=== PATIENT | female | born 1965 | race Caucasian/White ===

== ENCOUNTER 2017-12-06 22:24 | Inpatient (IN) | payer BC ==
--- NOTE | 2017-12-06 23:15 | RAD ---
PORTABLE CHEST ONE VIEW: 12/06/2017 10:06 p.m. HISTORY: Cough. Dizziness. COMPARISON: 04/04/2014 FINDINGS: The heart size is normal. The lungs are well expanded without focal areas of consolidation, pneumoth oraces, or pleural effusions. Evidence of old granulomatous disease is again seen. IMPRESSION: No radiographic evidence of acute cardiopulmonary process. POS: [facility]
[2017-12-06 23:58] LABS: ALT (SGPT) 32 U/L (8-55); AST (SGOT) 41 U/L (5-34); Albumin 4.1 g/dL (3.5-5.0); Alkaline Phosphatase 128 U/L (40-150); BUN (Urea Nitrogen) 15 mg/dL (9.8-20.1); Bilirubin, Total 4.2 mg/dL (0.2-1.2); Calc. Creatinine Clearance 0 mL/min (70-130); Estimated GFR-MDRD 64; Globulin 2.9 g/dL (2.4-3.5); Glucose 119 mg/dL (70-105)
[2017-12-07 00:04] LABS: #Basophils 0.1 thou/uL (0.0-0.2); #Eosinphils 0.1 thou/uL (0.0-0.7); #Lymphocytes 1.3 thou/uL (1.20-3.40); #Monocytes 0.9 thou/uL (0.11-0.59); #Neutrophils 6.2 thou/uL (1.40-6.50); %Basophils 0.8 % (0.0-1.0); %Eosinophils 1.3 % (0.0-10.0); %Lymphocytes 15.4 % (21.0-51.0); %Monocytes 10.2 % (0.0-10.0); %Neutrophils 72.3 % (42.0-75.0); Hemoglobin 15.6 g/dL (12.0-16.0); Mean Corpuscular HGB CONC 37.4 g/dL (32.0-36.0); Mean Corpuscular Hemoglobin 38.3 pg (27.0-31.0); Mean Platelet Volume 7.2 fL (7.4-10.4); Platelet Count 201 thou/uL (130-400); RBC Distribution Width 12.8 % (11.5-14.5); Red Blood Cell (RBC) Count 4.09 mill/uL (4.20-5.40); White Blood Cell (WBC) Count 8.6 thou/uL (4.8-10.8)
[2017-12-07 00:09] LABS: Carbon Dioxide 35 mmol/L (22-29)
[2017-12-07 00:11] LABS: Sodium 108 mmol/L (136-145)
[2017-12-07 00:17] LABS: Chloride Less than 65 mmol/L (98-107)
[2017-12-07] MEDS ORDERED: Ondansetron HCl/PF 4 MG/2 ML Vial IVP PRN (00:21)
[2017-12-07] MEDS ORDERED: Acetaminophen 325 MG TAB PO PRN (00:21)
[2017-12-07] MEDS ORDERED: CCU Electrolyte Replacement 1 EACH FS ONE (00:31)
[2017-12-07] MEDS ORDERED: Potassium Chloride 40 MEQ in Sodium Chloride 0.9% 250 ML 250 ML IVPB PRN (00:37)
[2017-12-07] MEDS ORDERED: Magnesium Oxide 400 MG TAB PO PRN ×2 (00:37)
[2017-12-07] MEDS ORDERED: Potassium Phosphate 9 MMOL in Sodium Chloride 0.9% 100 ML IVPB PRN (00:37)
[2017-12-07] MEDS ORDERED: Potassium Chloride 20 MEQ TAB PO PRN (00:37)
[2017-12-07] MEDS ORDERED: Potassium Phosphate 12 MMOL in Sodium Chloride 0.9% 250 ML 250 ML IV PRN (00:37)
[2017-12-07] MEDS ORDERED: Potassium Phosphate 15 MMOL in Sodium Chloride 0.9% 250 ML 250 ML IV PRN (00:37)
[2017-12-07] MEDS ORDERED: CCU ELECTROLYTE REPLACEMENT PROTOCOL FS PRN (00:37)
[2017-12-07] MEDS ORDERED: Magnesium 2 GM/NS 0.9% 100 ML 2 GM in Premix Bag 1 BAG IVPB PRN (00:37)
[2017-12-07] MEDS ORDERED: Sodium Chloride 3% 500 ML IVPB SCH (00:45)
[2017-12-07 01:07] LABS: Osmolality, Serum 226 mOsm/kg (280-295)
[2017-12-07 01:21] LABS: Thyroid Stimulating Hormone 1.2264 uIU/mL (0.35-4.94)
[2017-12-07 01:22] VITALS: BMI 33.5
[2017-12-07 02:18] LABS: #Eosinphils 0.1 thou/uL (0.0-0.7); #Lymphocytes 1.2 thou/uL (1.20-3.40); #Monocytes 0.8 thou/uL (0.11-0.59); #Neutrophils 5.6 thou/uL (1.40-6.50); %Basophils 0.6 % (0.0-1.0); %Eosinophils 1.6 % (0.0-10.0); %Lymphocytes 15.2 % (21.0-51.0); %Monocytes 10.1 % (0.0-10.0); %Neutrophils 72.6 % (42.0-75.0); Hemoglobin 14.8 g/dL (12.0-16.0); Mean Corpuscular Hemoglobin 36.7 pg (27.0-31.0); Mean Platelet Volume 6.6 fL (7.4-10.4); Platelet Count 191 thou/uL (130-400); RBC Distribution Width 12.7 % (11.5-14.5); Red Blood Cell (RBC) Count 4.04 mill/uL (4.20-5.40); White Blood Cell (WBC) Count 7.8 thou/uL (4.8-10.8)
[2017-12-07 02:36] LABS: BUN (Urea Nitrogen) 13 mg/dL (9.8-20.1); Calc. Creatinine Clearance 101 mL/min (70-130); Calcium 9.5 mg/dL (7.8-10.44); Carbon Dioxide 37 mmol/L (22-29); Estimated GFR-MDRD 77; Glucose 118 mg/dL (70-105)
[2017-12-07 02:38] LABS: Potassium 2.5 mmol/L (3.5-5.1); Sodium 113 mmol/L (136-145)
[2017-12-07 02:39] LABS: Chloride Less than 65 mmol/L (98-107)
[2017-12-07 03:24] LABS: Osmolality, Urine 118 mOsm/kg (300-900)
[2017-12-07] MEDS: Potassium Chloride 40 MEQ in Premix Bag 1 BAG IVPB PRN ×3 (03:36→14:10)
[2017-12-07 03:39] LABS: Sodium, Urine 27 mmol/L (Not Available)
--- NOTE | 2017-12-07 04:46 | HP ---
CHIEF COMPLAINT: Generalized weakness, dizziness, and numbness and tingling sensation. HISTORY OF PRESENT ILLNESS: This is a 52-year-old female with past medical history of hyperlipidemia , PA in 2016, hypertension, CVA, COPD, DVTs, being admitted for weakness and dizziness. Per the nitesh ent, her generalized weakness, dizziness, and numbness started about a week prior to admission. The patient states that she did not go to the hospital because she does not like going hospitals and also she does not want to miss her work; therefore, the patient states that she went to work every day, f eeling generalized weakness, numbness, and tingling sensation; however, then became progressively wor se and patient states that now she is having even difficulty with ambulation; therefore, the patient was prompted to go to the ED at [place]. Per medical records, patient stated that she had a vom iting sensation and she had also blurry vision and nausea. Patient denies any fever, headaches, ches t pain, shortness of breath, heart palpitations, abdominal pain. REVIEW OF SYSTEMS: Positive for blurry vision, nausea, vomiting, paresthesias, otherwise as document ed in the [facility], all other systems were reviewed and are negative. FAMILY HISTORY: Reviewed and noncontributory. PAST MEDICAL HISTORY: PA in 2016, hyperlipidemia, hypertension, CVA in 2016, COPD, history of DVT. PAST SURGICAL HISTORY: Left oophorectomy, tubal ligation, , tonsillectomy. PSYCHIATRIC HISTORY: History of depression. SOCIAL HISTORY: The patient drinks socially. Patient denies illicit drug use and patient denies tob acco use. ALLERGIES: BACTRIM. CUURENT MEDICATIONS: Patient takes lisinopril, hydrochlorothiazide, Prozac, isosorbide mononitrate. PHYSICAL EXAMINATION: VITAL SIGNS: Blood pressure is 119/84, pulse of 90, respiratory rate of 18, temperature of 98.3, oxy gen saturation of 94 on room air. GENERAL: The patient is alert, oriented x3, not in acute distress. Patient is lying in bed, speakin g in full sentences. HEENT: Normocephalic, atraumatic. Pupils are equal, round, and react to light. Extraocular movemen ts are intact. No scleral icterus. Mucous membranes are dry. NECK: Trachea is midline. No JVD. Full range of motions. Neck is supple. LUNGS: Clear to auscultation bilaterally. No wheezing, no rales, no rhonchus appreciated. CARDIOVASCULAR: Positive S1, S2. Regular rate and rhythm. No murmurs, no gallops, no rubs apprecia lisa. ABDOMEN: Soft, nontender, nondistended. No masses. No pulsatile masses. No peritoneal signs. Pos itive bowel sounds in all quadrants. EXTREMITIES: Full range of motion of the upper extremities are 5/5 in strength. Good radial pulses. Lower extremity: 5/5 lower extremity strength, full range of motion. NEUROLOGIC: Cranial nerves II through XII grossly intact. No neurologic deficits noted. The patien t is alert, oriented x3. SKIN: Warm, dry, and intact. PSYCHIATRIC: The patient has normal affect. Alert and oriented x3. LABORATORY DATA: WBC is 8.3, hemoglobin 15.6, hematocrit 41.8, platelet count is 201,000. Sodium is 108, potassium is 2.0, chloride is less than 65, carbon dioxide of 35. Anion gap cannot be calculat ed. BUN is 15, creatinine 0.92, GFR of 54, glucose is 119. Serum osmolality is 226, calcium is 10.0 . Total bilirubin is 4.2, AST is 41, ALT is 32, alkaline phosphatase 128. TSH is 1.2264. Urine osm olality is 118. Urine spot sodium is pending. ASSESSMENT AND PLAN: This is a 52-year-old female being admitted for; 1. 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 Patient takes hydrochlorothiazide and Prozac, w hich can cause hyponatremia. Prozac can cause syndrome of inappropriate antidiuretic hormone secreti on. At this point, the patient also has underlying hypovolemia. Patient's chloride is less than 65 and we have placed a central line. We have started hypertonic saline. We will follow up BMP every 4 hours; our goal for sodium within 24 hours is between 68. [employer] has been placed for nurse to co ntact Nephrology. When sodium goes above 115, we will replete electrolytes. We will follow up on ur ine spot sodium at this point, serum osmolarity is 226., aurine osmolarity is 118. Nephrology has be en consulted. We will follow up with Nephrology regarding any further recommendations. The patient has been admitted to the ICU. 2. Electrolyte abnormalities. We will replete patient's potassium and we will continue to monitor t he patient's electrolytes. 3. Hyperlipidemia. We will continue patient on current management. 4. Hypertension. We will monitor patient's blood pressure closely and we will give blood pressure m edication as needed. We will start the patient on her home blood pressure medication of lisinopril a nd we will hold hydrochlorothiazide due to hydrochlorothiazide tendency to cause hyponatremia. 5. History of depression. We will hold patient's psych medication at this time while we will manage the patient's hyponatremia. 6. History of cerebrovascular accident, currently stable. We will monitor the patient closely. 7. Deep venous thrombosis and gastrointestinal prophylaxis. We will do Lovenox for deep venous thro mbosis and we will fluid restrict the patient to 1200 mL and no gastrointestinal chemical prophylaxis needed.
[2017-12-07 08:15] LABS: Anion Gap 13 mmol/L (10-20); BUN (Urea Nitrogen) 11 mg/dL (9.8-20.1); Calc. Creatinine Clearance 108 mL/min (70-130); Calcium 9.4 mg/dL (7.8-10.44); Carbon Dioxide 37 mmol/L (22-29); Chloride 76 mmol/L (98-107); Estimated GFR-MDRD 83; Glucose 113 mg/dL (70-105); Sodium 123 mmol/L (136-145)
[2017-12-07 08:21] LABS: Potassium 2.7 mmol/L (3.5-5.1)
--- NOTE | 2017-12-07 08:32 | RAD ---
PORTABLE AP CHEST: Date: 12/06/17 HISTORY: Post central line placement. COMPARISON: 12/06/17 at 1006 hours. FINDINGS: There has been interval placement of a right internal jugular vein central venous catheter. Tip of th e catheter overlies the expected location of the right atrium. No pneumothorax or pleural effusion is seen. Cardiac silhouette and pulmonary vasculature are within normal limits. Calcified granulomata a re again seen at the lateral aspect of the left upper lung zone. Lungs are otherwise clear. No other interval change. IMPRESSION: 1. Interval placement of right internal jugular central venous catheter with tip overlying the regio n of the right atrium. No pneumothorax is seen. 2. Remainder of the chest is stable. POS: [facility]
[2017-12-07] MEDS: Enoxaparin Sodium 40 MG/0.4 ML SYRINGE SC SCH (08:39)
--- NOTE | 2017-12-07 08:40 | PDOC.PN ---
- Subjective Encounter Start Date: 12/07/17 Encounter Start Time: 08:39 Ms. Nair was seen today in follow-up of severe hyponatremia. She is sleepy but will awaken. She is oriented to person place and time. She says she is tired , but otherwise no complaints. - Objective Resuscitation Status: Resuscitation Status FULL:Full Resuscitation MAR Reviewed: Yes Vital Signs & Weight: Vital Signs (12 hours) Temp Pulse BP Pulse Ox 12/07/17 08:16 92/61 12/07/17 08:15 81 92/61 12/07/17 04:00 98.7 F 12/07/17 01:34 97 12/07/17 01:00 98.8 F Weight Weight 171 lb 8.314 oz Most Recent Monitor Data Heart Rate from ECG 85 NIBP 92/61 NIBP BP-Mean 70 Respiration from ECG 17 SpO2 93 I&O: 12/06/17 12/07/17 12/08/17 06:59 06:59 06:59 Intake Total 409 Output Total 1050 Balance -641 Result Diagrams: 12/07/17 02:05 12/07/17 07:48 Phys Exam - Physical Examination HEENT: PERRLA, sclera anicteric Respiratory: no wheezing, no rales, no rhonchi, clear to auscultation bilateral Cardiovascular: RRR, no significant murmur, no rub no gallop Gastrointestinal: soft, non-tender, no distention, positive bowel sounds Musculoskeletal: no edema, pulses present Neurological: non-focal, moves all 4 limbs Psychiatric: normal affect, A&O x 3 Skin: cap refill <2 seconds Deviation from normal: + erythemamous ans dry scaling skin in both feet and groin Dx/Plan (1) Hyponatremia Code(s): E87.1 - HYPO-OSMOLALITY AND HYPONATREMIA Status: Acute (2) Hypokalemia Code(s): E87.6 - HYPOKALEMIA Status: Acute (3) Hypertension Code(s): I10 - ESSENTIAL (PRIMARY) HYPERTENSION Status: Chronic (4) Depression Code(s): F32.9 - MAJOR DEPRESSIVE DISORDER, SINGLE EPISODE, UNSPECIFIED Status : Chronic - Plan * Hyponatremia- her serum sodium was 123 this AM. 3% saline infusion has been discontinued. Urine osmolality and serum oslmolality were low. Await further recommendations from Nephrology * Hypokalemia- K= level was 2.9 continue to replace. * Both of above are likely from thiazide diuretic, in setting of decreased intake * HTN- her blood pressure is low- will hold Lisinopril, and Carvediolol, and Imdur for now * Depression- will continue to hold Prosac until her serm sodium is corrected
[2017-12-07] MEDS ORDERED: Amlodipine 10 MG TAB PO SCH (09:00)
[2017-12-07] MEDS ORDERED: Lisinopril 10 MG TAB PO SCH (09:00)
[2017-12-07] MEDS: D5 NS w/ 40 mEq KCl 1,000 ML IV SCH ×3 (10:30→20:39)
[2017-12-07 13:17] LABS: Anion Gap 9 mmol/L (10-20); BUN (Urea Nitrogen) 9 mg/dL (9.8-20.1); Calc. Creatinine Clearance 110 mL/min (70-130); Calcium 9.4 mg/dL (7.8-10.44); Carbon Dioxide 37 mmol/L (22-29); Chloride 81 mmol/L (98-107); Estimated GFR-MDRD 84; Glucose 132 mg/dL (70-105); Potassium 3.1 mmol/L (3.5-5.1); Sodium 124 mmol/L (136-145)
--- NOTE | 2017-12-07 16:44 | PRG ---
PULMONARY CONSULT DATE OF SERVICE: 12/07/2017. Randi Nair is a 52-year-old female. She presented with weakness and dizziness. She reached a point where she can barely walk. She presented to [place] and was subsequently transferred here. She was found to be hyponatremic. PAST MEDICAL HISTORY: 1. Remarkable for coronary artery disease with myocardial infarction in 2016. 2. History of lipid disorder. 3. History of hypertension. 3. History of a cerebrovascular accident. 4. History of DVT in the past. 5. History of an oophorectomy. 6. History of tubal ligation. 7. History of tonsillectomy. 8. History of depression. She drank. She does not use drugs. She does not smoke. She reports SULFA allergy. Prior to admission, she was on an MAVERICK inhibitor, hydrochlorothiazide, Prozac and she says she has been on Prozac for several years and hydrochlorothiazide was only recently started. PHYSICAL EXAMINATION: VITAL SIGNS: Heart rate is 83, blood pressures in the 90/60 range, respiratory rates in the teens. HEENT: Pupils react. Sclerae are anicteric. Extraocular movements appeared to be full. NECK: Supple. LUNGS: Clear. HEART: Regular rhythm, no S3. ABDOMEN: Soft and nontender. EXTREMITIES: No clubbing, cyanosis, or edema. NEURO: She is slow to respond, but apparently more alert than she was when she got here. LABORATORY DATA: White count 7.8, hemoglobin 14.8, platelets 191,000. Sodium 124, potassium 3.1, chloride 81, bicarbonate 37, BUN 9, creatinine 0.72. Urine osmolality is 118. Urine sodium is 27. IMPRESSION: Hypoosmolar hyponatremia. The diuretic most likely is the culprit. The antidepressants may be contributing. I have a sodium from September that was 131. In 2014, her sodium was 137. Perhaps a diuretic aggravated some hyponatremia brought on by the Prozac should be corrected slowly. She gradually improved neurologically. Her cortisol and TSH do not suggest hypothyroidism or adrenal insufficiency. We will follow. We would wonder if she is intravascularly dry given that she is normally hypertensive and now is hypotensive. There are no pending cultures reported. MTDD
[2017-12-07 18:59] LABS: Anion Gap 13 mmol/L (10-20); BUN (Urea Nitrogen) 10 mg/dL (9.8-20.1); Calc. Creatinine Clearance 110 mL/min (70-130); Calcium 9.1 mg/dL (7.8-10.44); Carbon Dioxide 33 mmol/L (22-29); Chloride 84 mmol/L (98-107); Estimated GFR-MDRD 84; Glucose 140 mg/dL (70-105); Potassium 3.7 mmol/L (3.5-5.1); Sodium 126 mmol/L (136-145)
--- NOTE | 2017-12-07 23:54 | CON ---
DATE OF CONSULTATION: 12/07/2017 REQUESTING PHYSICIAN: ER physician. REASON FOR CONSULTATION: Severe hyponatremia, symptomatic. IMPRESSION: 1. Severe hyponatremia. This is likely due to hydrochlorothiazide usage compounded by poor osmolar intake. 2. Severe hypokalemia in the context of poor intake. PLAN: 1. Patient needs ICU level of care with very close monitoring of the sodium as hypertonic saline guillermina l be used to address this hyponatremia. 2. Replete potassium. 3. Permanently discontinue hydrochlorothiazide. HISTORY OF PRESENT ILLNESS: History is that of 52-year-old female patient who presented with general ized weakness, dizziness, numbness and tingling sensation. Patient noted with the above symptoms and has been going on for some time, but patient did not go to the hospital. She claimed that she does not like going to the hospital and does not like to miss her walk. This problem progressively got wo rse to the point that the patient presented to the emergency room in [place] where patient was n oted to be severely hyponatremic with sodium level of 108. As a result of this, decision has been ta tomasz to involve [facility] in the management of this case. PAST MEDICAL HISTORY: Significant for hypertension, dyslipidemia, CVA, COPD, and history of DVT. MEDICATIONS: Reviewed and as documented on [employer]. SOCIAL HISTORY: Denies alcohol, tobacco or illicit drug use. REVIEW OF SYSTEMS: Highly limited given the fact this patient is very lethargic. ALLERGIES: BACTRIM. FAMILY HISTORY: Not significantly related to presenting illness. LABORATORY INVESTIGATION: Significant for patient presented with sodium of 108, potassium of 2.0. PHYSICAL EXAMINATION: GENERAL: The patient was noted to be severely lethargic noted with the following vital signs. VITAL SIGNS: Blood pressure 88/63, heart rate 94, respiratory rate 26, O2 sat 100%. HEENT: Unremarkable with moist oral mucosa. Neck is supple. No conjunctival injection or icterus. CARDIOVASCULAR SYSTEM: First and second heart sounds were heard. RESPIRATORY SYSTEM: Clear to auscultation. DIGESTIVE SYSTEM: Revealed a benign abdomen with positive bowel sounds. EXTREMITIES: No peripheral edema. SKIN: No new gross rash. LYMPHATICS: No peripheral lymphadenopathy. SUMMARY: A 52-year-old female patient who presented here severely lethargic and noted to have severe hyponatremia. Thank you for this consultation. We will follow with you.
[2017-12-08 01:16] LABS: Anion Gap 11 mmol/L (10-20); BUN (Urea Nitrogen) 8 mg/dL (9.8-20.1); Calc. Creatinine Clearance 122 mL/min (70-130); Calcium 8.6 mg/dL (7.8-10.44); Carbon Dioxide 33 mmol/L (22-29); Chloride 88 mmol/L (98-107); Estimated GFR-MDRD Greater than 90; Glucose 104 mg/dL (70-105); Potassium 3.8 mmol/L (3.5-5.1); Sodium 128 mmol/L (136-145)
[2017-12-08] MEDS: D5 NS w/ 40 mEq KCl 1,000 ML IV SCH ×3 (04:43→20:53)
[2017-12-08 07:04] LABS: Anion Gap 11 mmol/L (10-20); BUN (Urea Nitrogen) 7 mg/dL (9.8-20.1); Calc. Creatinine Clearance 122 mL/min (70-130); Calcium 8.4 mg/dL (7.8-10.44); Carbon Dioxide 31 mmol/L (22-29); Chloride 91 mmol/L (98-107); Estimated GFR-MDRD Greater than 90; Glucose 108 mg/dL (70-105); Potassium 3.9 mmol/L (3.5-5.1); Sodium 129 mmol/L (136-145)
[2017-12-08] MEDS: Enoxaparin Sodium 40 MG/0.4 ML SYRINGE SC SCH (08:25)
--- NOTE | 2017-12-08 10:06 | PDOC.PN ---
- Subjective Encounter Start Date: 12/08/17 Encounter Start Time: 10:04 Ms. Nair was seen today in follow-up of Hyponatremia. She has a headache, but it is similar to headaches she has had in the past. - Objective Resuscitation Status: Resuscitation Status FULL:Full Resuscitation MAR Reviewed: Yes Vital Signs & Weight: Vital Signs (12 hours) Temp Pulse Ox 12/08/17 08:00 97.9 F 100 12/08/17 04:00 98.8 F 12/08/17 00:00 98.9 F Weight Admit Weight 171 lb Weight 172 lb 2.896 oz Most Recent Monitor Data Heart Rate from ECG 92 NIBP 93/55 NIBP BP-Mean 75 Respiration from ECG 22 SpO2 100 I&O: 12/07/17 12/08/17 12/09/17 06:59 06:59 06:59 Intake Total 409 3121 240 Output Total 1050 2105 60 Balance -641 1016 180 Result Diagrams: 12/07/17 02:05 12/08/17 06:23 Phys Exam - Physical Examination HEENT: PERRLA Respiratory: no wheezing, no rales, no rhonchi, clear to auscultation bilateral Cardiovascular: RRR, no significant murmur, no rub Gastrointestinal: soft, non-tender, no distention, positive bowel sounds Musculoskeletal: edema present trace non-pitting edema Neurological: non-focal, moves all 4 limbs Psychiatric: normal affect, A&O x 3 Dx/Plan (1) Hyponatremia Code(s): E87.1 - HYPO-OSMOLALITY AND HYPONATREMIA Status: Acute (2) Hypokalemia Code(s): E87.6 - HYPOKALEMIA Status: Resolved (3) Hypertension Code(s): I10 - ESSENTIAL (PRIMARY) HYPERTENSION Status: Chronic (4) Depression Code(s): F32.9 - MAJOR DEPRESSIVE DISORDER, SINGLE EPISODE, UNSPECIFIED Status : Chronic - Plan * Hyponatremia- improved, her serum sodium is 129 this morning, continueNormal saline infusion * HTN- blood pressure is still on the lower side- will continue to hold Isosorbide, and Lisinopril * Will discontinue HCTZ * Depression- will continue to hold Prosac * Agree with transfer out of the ICU.
--- NOTE | 2017-12-08 14:57 | PRG ---
DATE OF SERVICE: 12/08/2017 Ms. Nair has had stable vital signs. She is afebrile, heart rate in the 60s, respiratory rates in the teens. Oximetry is 100% on room air. Blood pressure is between 94/69 and 108/75 this morning. Sodium is up to 129, potassium 3.9, chloride 91, bicarbonate 31, BUN 7, creatinine 0.65. IMPRESSION: Hypoosmolar hyponatremia, probably with coexisting intravascular volume depletion. PLAN: Continue avoidance of Prozac and thiazide diuretic. Continue with supportive care. Intake and output are remarkable for p.o. intake of only 240 mL today, 800 mL yesterday, At some point, she may need a fluid restriction if this was in part SIADH secondary to the Prozac. She is stable to transfer out of the Critical Care Unit. We will sign off. MTDD
--- NOTE | 2017-12-08 20:05 | PRG ---
DATE OF SERVICE: 12/08/2017 SUBJECTIVE: The patient was seen and examined, seems to be doing much better, noted with the followi ng vital signs. PHYSICAL EXAMINATION: VITAL SIGNS: Afebrile with temperature 97.9, pulse 80, respiratory rate of 18, O2 saturation of 97%, blood pressure 97/70. HEENT: Unremarkable. Moist oral mucosa. NECK: Supple. No conjunctival injection. No icterus. CARDIOVASCULAR SYSTEM: First and second heart sounds were heard. RESPIRATORY SYSTEM: Clear to auscultation. DIGESTIVE SYSTEM: Revealed a benign abdomen with positive bowel sounds. EXTREMITIES: No peripheral edema. SKIN: No new gross rash. LYMPHATICS: No peripheral lymphadenopathy. LABORATORY INVESTIGATIONS: Sodium came up to 129, potassium 3.9. IMPRESSION: 1. Hyponatremia in the context of hydrochlorothiazide usage compounded by poor osmolar intake. 2. Hypokalemia, resolved. PLAN: 1. Continue current renal supportive measures. 2. Highly nutritional diet is recommended. 3. Permanently discontinue hydrochlorothiazide. 4. Further management will be dependent on the clinical course.
[2017-12-09] MEDS: D5 NS w/ 40 mEq KCl 1,000 ML IV SCH (06:11)
[2017-12-09] MEDS: Enoxaparin Sodium 40 MG/0.4 ML SYRINGE SC SCH (08:11)
[2017-12-09] MEDS ORDERED: D5 NS w/ 40 mEq KCl 1,000 ML IV SCH (09:31)
[2017-12-09 11:01] LABS: Anion Gap 11 mmol/L (10-20); BUN (Urea Nitrogen) 6 mg/dL (9.8-20.1); Calc. Creatinine Clearance 0 mL/min (70-130); Calcium 8.4 mg/dL (7.8-10.44); Carbon Dioxide 24 mmol/L (22-29); Chloride 102 mmol/L (98-107); Estimated GFR-MDRD Greater than 90; Glucose 105 mg/dL (70-105); Potassium 4.7 mmol/L (3.5-5.1); Sodium 132 mmol/L (136-145)
[2017-12-09 16:51] VITALS: BP 125/92; TEMP 98.1
[2017-12-09] MEDS ORDERED: hydrALAZINE 25 MG TAB PO PRN (17:17)
--- NOTE | 2017-12-09 17:32 | PDOC.PN ---
- Subjective Encounter Start Date: 12/09/17 Encounter Start Time: 17:30 Ms. Nair is feeling much better. She is tolerating solid food, and wants to go home. - Objective Resuscitation Status: Resuscitation Status FULL:Full Resuscitation MAR Reviewed: Yes Vital Signs & Weight: Vital Signs (12 hours) Temp Pulse Resp BP BP Pulse Ox 12/09/17 16:00 98.1 F 88 20 125/92 H 96 12/09/17 11:34 97.9 F 80 18 113/78 96 12/09/17 08:00 98.1 F 89 18 90/65 99 Weight Admit Weight 171 lb Weight 2.795 oz Most Recent Monitor Data Heart Rate from ECG 92 NIBP 93/55 NIBP BP-Mean 75 Respiration from ECG 22 SpO2 100 I&O: 12/08/17 12/09/17 12/10/17 06:59 06:59 06:59 Intake Total 3121 4378 Output Total 2105 2445 225 Balance 1016 1933 -225 Result Diagrams: 12/07/17 02:05 12/09/17 10:16 Phys Exam - Physical Examination HEENT: PERRLA Respiratory: no wheezing, no rales, no rhonchi, clear to auscultation bilateral Cardiovascular: RRR, no significant murmur, no rub Gastrointestinal: soft, non-tender, no distention, positive bowel sounds Musculoskeletal: no edema Dx/Plan (1) Hyponatremia Code(s): E87.1 - HYPO-OSMOLALITY AND HYPONATREMIA Status: Acute (2) Hypokalemia Code(s): E87.6 - HYPOKALEMIA Status: Resolved (3) Hypertension Code(s): I10 - ESSENTIAL (PRIMARY) HYPERTENSION Status: Chronic (4) Depression Code(s): F32.9 - MAJOR DEPRESSIVE DISORDER, SINGLE EPISODE, UNSPECIFIED Status : Chronic - Plan * Hyponatremia- much improved * HTN- blood pressure is beginning to creep upwards- she can re-start her blood pressures except for HCTZ * Stable for discharge home.
--- NOTE | 2017-12-10 00:41 | DIS ---
DATE OF ADMISSION: 12/07/2017 DATE OF DISCHARGE: 12/09/2017 DISCHARGE DIAGNOSES: 1. Severe hyponatremia. 2. Hypertension. 3. Depression. 4. History of cerebrovascular accident. 5. Chronic obstructive pulmonary disease. 6. Coronary artery disease. DISCHARGE MEDICATIONS: Please note that hydrochlorothiazide has been discontinued as well as Paxil d ue to the severe hyponatremia. The patient is to continue Norvasc 10 mg daily, isosorbide extended-r elease 30 mg daily, lisinopril 10 mg daily, and Prilosec 20 mg a day. CODE STATUS: FULL CODE. ALLERGIES: SULFA and TRIMETHOPRIM. HOSPITAL COURSE: Ms. Nair is a pleasant 52-year-old female that presented to the emergency room complaining of generalized weakness and dizziness as well as altered mental status. When she was dariela luated in the ER, she was found to have a serum sodium of 108. Her urine and serum osmolalities were low and it was felt that this was due to hydrochlorothiazide. It is also noted that her serum potas sium was low as well. She was also on the antidepressant Paxil, which could potentiate the hyponatre tanner by causing a syndrome of SIADH. She was admitted and placed in the ICU originally evaluated by N nathalia, placed on hypertonic saline until her sodium was above 120 and then transitioned over to s elvie. At the time of discharge, her serum sodium was 132 at the time of discharge. She was clinica lly much improved and as such will be discharged home and has been instructed never to start hydrochl orothiazide again and she will need to discuss with her primary care physician when and if to restart Paxil. The patient therefore is discharged to home on 12/09/2017.
== END 2017-12-09 18:02 | disposition home or self-care (01) | DRG 641 ==
LOC: ERS 22:24 → CCU 12-07 01:00 → T4-B 12-08 10:18
PROVIDERS: ADMIT Internal Medicine; ATTEND Internal Medicine
DX: E87.1 Hypo-osmolality and hyponatremia (principal); E78.5 Hyperlipidemia, unspecified; I10 Essential (primary) hypertension; J44.9 Chronic obstructive pulmonary disease, unspecified; F32.9 Major depressive disorder, single episode, unspecified; E87.5 Hyperkalemia; T50.2X5A Adverse effect of carbonic-anhydrase inhibitors, benzothiadiazides and other diuretics, initial encounter; Y92.9 Unspecified place or not applicable; Z88.2 Allergy status to sulfonamides; I25.2 Old myocardial infarction; Z86.73 Personal history of transient ischemic attack (TIA), and cerebral infarction without residual deficits; Z86.718 Personal history of other venous thrombosis and embolism
CPT/HCPCS: 36415; 36556; 71045; 80048; 82533; 83735; 83930; 83935; 84300; 84443; 85025; J1650; J3480; J7131

== ENCOUNTER 2017-12-20 13:46 | Observation (INO) | payer BC ==
[~2017-12-20 13:46] MED LIST: ISOVUE-370 76%-LOCM 1 ML ONE
[2017-12-20] MEDS ORDERED: Ondansetron PF 4 MG/2 ML Vial ONE ×2 (14:34→17:21)
[2017-12-20 14:45] LABS: Amphetamine Not Detected (NotDetected); Barbiturates Screen Not Detected (NotDetected); Benzodiazepine Screen Not Detected (NotDetected); Cocaine Metabolite Screen Not Detected (NotDetected); Medtox Control Line Valid? VALID (VALID); Medtox Reader # READER 1; Methadone Not Detected (NotDetected); Methamphetamine Not Detected (NotDetected); Opiate Screen Detected (NotDetected); Oxycodone Screen Not Detected (NotDetected); Phencyclidine (PCP) Not Detected (NotDetected); THC/Cannabinoid Screen Not Detected (NotDetected); Tricyclic Screen Not Detected (NotDetected)
[2017-12-20 15:02] LABS: #Eosinphils 0.1 thou/uL (0.0-0.7); #Lymphocytes 1.4 thou/uL (1.20-3.40); #Monocytes 0.4 thou/uL (0.11-0.59); #Neutrophils 9.1 thou/uL (1.40-6.50); %Basophils 0.4 % (0.0-1.0); %Eosinophils 0.8 % (0.0-10.0); %Lymphocytes 12.4 % (21.0-51.0); %Monocytes 3.7 % (0.0-10.0); %Neutrophils 82.8 % (42.0-75.0); Hemoglobin 13.7 g/dL (12.0-16.0); Mean Corpuscular HGB CONC 33.9 g/dL (32.0-36.0); Mean Corpuscular Hemoglobin 36.6 pg (27.0-31.0); Mean Platelet Volume 5.6 fL (7.4-10.4); Platelet Count 298 thou/uL (130-400); RBC Distribution Width 14.2 % (11.5-14.5); Red Blood Cell (RBC) Count 3.75 mill/uL (4.20-5.40)
[2017-12-20 15:11] LABS: ALT (SGPT) 66 U/L (8-55); AST (SGOT) 47 U/L (5-34); Alkaline Phosphatase 122 U/L (40-150); Anion Gap 11 mmol/L (10-20); BUN (Urea Nitrogen) 7 mg/dL (9.8-20.1); Bilirubin, Total 1.9 mg/dL (0.2-1.2); Calc. Creatinine Clearance 0 mL/min (70-130); Calcium 9.3 mg/dL (7.8-10.44); Carbon Dioxide 23 mmol/L (22-29); Chloride 102 mmol/L (98-107); Estimated GFR-MDRD 84; Globulin 2.9 g/dL (2.4-3.5); Glucose 122 mg/dL (70-105); Potassium 3.2 mmol/L (3.5-5.1); Protein, Total 6.9 g/dL (6.0-8.3); Sodium 133 mmol/L (136-145)
[2017-12-20 15:14] LABS: Troponin I Less than 0.010 ng/mL (< 0.028)
[2017-12-20 15:19] LABS: MDiff Complete? YES; Macrocytosis SLIGHT = 6-15 cells (100X) (0-5/hpf); PLT Morphology Comment Appears Adequate
--- NOTE | 2017-12-20 15:19 | RAD ---
CHEST 1 VIEW: Date: 12/20/17 HISTORY: Chest pain. COMPARISON: 12/06/17. FINDINGS: Cardiac silhouette is magnified by projection. Pulmonary vasculature is unremarkable. Mediastinum is midline. No lobar consolidation or evidence of pneumothorax. secured entrance monitor leads overlie the chest. IMPRESSION: No active cardiopulmonary abnormalities are demonstrated. POS: [facility]
[2017-12-20] MEDS ORDERED: Nitroglycerin 2% Ointment 1 INCH/1 GM Packet ONE (15:44)
--- NOTE | 2017-12-20 16:34 | CT ---
CT ARTERIOGRAM CHEST WITH IV CONTRAST AND 3D MIP IMAGING: Date: 12/20/17 HISTORY: Tachycardia. Chest pain. FINDINGS: There is good contrast opacification of the pulmonary arteries and thoracic aorta. No pleural fluid, pneumothorax, or mediastinal adenopathy are apparent. Hiatal hernia. Within the partially visualized upper abdomen, thin calcification measures up to 0.8 cm in length. IMPRESSION: 1. No CT evidence of pulmonary embolus. 2. Nonobstructing left renal calculus superior pole. POS: [facility]
[2017-12-20] MEDS ORDERED: Potassium Chloride 20 MEQ TAB ONE (16:41)
[2017-12-20] MEDS ORDERED: Morphine 4 MG/ML VIAL ONE (18:07)
[2017-12-20] MEDS ORDERED: Metoprolol Tartrate 50 MG TAB ONE (18:07)
[2017-12-20 18:16] LABS: Bilirubin Negative (Negative); Blood, Urine Negative (Negative); Clarity CLEAR (Clear); Glucose, Urine (Dipstick) Negative (Negative); Leukocyte Negative (Negative); Nitrite Negative (Negative); Protein, Urine (Dipstick) Negative (Neg-Trace); Specific Gravity, Urine 1.007 (1.002-1.036); pH, Urine 5.5 (5.0-9.0)
--- NOTE | 2017-12-20 19:32 | ULT ---
RIGHT UPPER QUADRANT ULTRASOUND: 12/20/2017 HISTORY: Chest pain and abnormal liver function tests. FINDINGS: The liver demonstrates a coarsened echotexture and increased echogenicity, likely compatible with dif fuse fatty infiltration. This does limit evaluation of the hepatic parenchyma, but no definite hepat ic lesion is appreciated. Echogenic material is seen within the gallbladder lumen, suggesting sludge; however, there is also holland ggestion of posterior shadowing in the region of the sludge, which may be related to gallbladder calc natalie as well. There is no gallbladder wall thickening or pericholecystic fluid identified. The commo n duct measures 0.3 cm in diameter, which is within normal limits. The right kidney measures 9.1 cm in length and demonstrates a normal sonographic appearance. The vis ualized portions of the IVC have a normal sonographic appearance. The pancreas is obscured due to sh adowing from bowel gas. IMPRESSION: 1. Diffuse fatty infiltration of the liver. 2. Gallbladder sludge, but there is also shadowing from the region of the sludge within the gallblad naveen lumen, which may be related to small gallbladder calculi as well. There is no gallbladder wall t hickening or pericholecystic fluid, and the common duct is normal in caliber. POS: [facility]
[2017-12-20 20:27] LABS: Troponin I Less than 0.010 ng/mL (< 0.028)
[2017-12-20 23:15] VITALS: BMI 33.7
[2017-12-20] MEDS ORDERED: Acetaminophen 325 MG TAB PO PRN (23:26)
[2017-12-20] MEDS ORDERED: Sodium Chloride 0.9% 1,000 ML IV SCH (23:26)
[2017-12-20] MEDS ORDERED: HYDROcodone/Acetaminophen 5/325 mg Tablet PO PRN ×2 (23:26)
[2017-12-20] MEDS ORDERED: Ondansetron PF 4 MG/2 ML Vial IVP PRN (23:26)
[2017-12-20] MEDS ORDERED: Ondansetron ODT 4 MG TAB SL PRN (23:26)
[2017-12-20] MEDS ORDERED: Metoprolol Tartrate 50 MG TAB PO SCH (23:30)
[2017-12-20 23:55] LABS: Troponin I Less than 0.010 ng/mL (< 0.028)
[2017-12-21] MEDS ORDERED: Potassium Chloride 20 MEQ TAB PO SCH (00:15)
[2017-12-21] MEDS: Sodium Chloride 0.9% 1,000 ML IV SCH ×3 (00:22→23:54)
[2017-12-21] MEDS ORDERED: Potassium Chloride 20 MEQ TAB ONE (00:31)
[2017-12-21] MEDS ORDERED: HYDROcodone/Acetaminophen 5/325 mg Tablet ONE (00:32)
[2017-12-21 05:36] LABS: #Eosinphils 0.2 thou/uL (0.0-0.7); #Lymphocytes 1.2 thou/uL (1.20-3.40); #Monocytes 0.3 thou/uL (0.11-0.59); #Neutrophils 4.4 thou/uL (1.40-6.50); %Basophils 0.5 % (0.0-1.0); %Eosinophils 2.7 % (0.0-10.0); %Lymphocytes 19.4 % (21.0-51.0); %Monocytes 4.6 % (0.0-10.0); %Neutrophils 72.8 % (42.0-75.0); Hemoglobin 13.4 g/dL (12.0-16.0); Mean Corpuscular HGB CONC 34.4 g/dL (32.0-36.0); Mean Corpuscular Hemoglobin 37.9 pg (27.0-31.0); Mean Platelet Volume 6.1 fL (7.4-10.4); Platelet Count 228 thou/uL (130-400); RBC Distribution Width 14.4 % (11.5-14.5); Red Blood Cell (RBC) Count 3.53 mill/uL (4.20-5.40); White Blood Cell (WBC) Count 6.1 thou/uL (4.8-10.8)
[2017-12-21 06:37] LABS: Anion Gap 15 mmol/L (10-20); BUN (Urea Nitrogen) 5 mg/dL (9.8-20.1); Calc. Creatinine Clearance 117 mL/min (70-130); Calcium 9.2 mg/dL (7.8-10.44); Carbon Dioxide 19 mmol/L (22-29); Chloride 110 mmol/L (98-107); Estimated GFR-MDRD 90; Glucose 94 mg/dL (70-105); Potassium 4.2 mmol/L (3.5-5.1); Sodium 140 mmol/L (136-145)
[2017-12-21] MEDS ORDERED: Lisinopril 10 MG TAB PO SCH (09:00)
[2017-12-21] MEDS ORDERED: Amlodipine 10 MG TAB PO SCH (09:00)
[2017-12-21] MEDS: Enoxaparin Sodium 40 MG/0.4 ML SYRINGE SC SCH (09:08)
[2017-12-21] MEDS ORDERED: Nitroglycerin 0.4 MG TAB (25 Tab Bottle) PO PRN (10:51)
--- NOTE | 2017-12-21 11:35 | HP ---
DATE OF ADMISSION: 12/21/2017 PRIMARY CARE PHYSICIAN: Brandie Ramos NP PRIMARY OTHER SPORTS OFFICIAL: None. HISTORY OF PRESENT ILLNESS: Patient is a 52-year-old white female with coronary artery disease, hype rtension, COPD, DVT 3 months ago, and hyperlipidemia, who presented to her primary care physician's o ffice for a followup. She was found to have tachycardia, for which she was sent to the emergency [facility] for evaluation. The patient was discharged from this facility, approximately 2 weeks ago, for hypo natremia. Please refer to the discharge summary dated 12/09/2017 for further details. Patient denies any palpitations; however, had some intermittent chest pain over the last 2-3 days. T he chest pain was substernal, mild in intensity without any aggravating or relieving factor. She den ies any diaphoresis, nausea, vomiting, or radiation of the chest pain. She also had some nausea with intermittent vomiting for the last 3 days. No abdominal pain reported. In the emergency room, initial vital signs showed temperature 98.7, respirations 13, pulse rate of 13 0 with a blood pressure of 127/97 with O2 saturation 98% on room air. Initial EKG showed sinus tachy cardia with nonspecific ST-T-wave changes. Troponins were negative. TSH was negative. Her chest pa in has completely resolved at this time. She received aspirin, nitro paste, and beta yanet with mo rphine in the emergency room. PAST MEDICAL HISTORY: 1. Coronary artery disease, status post NC at [facility]. She denies any coronary stent pl acement. 2. History of cerebrovascular accident. 3. Hypertension. 4. Hyperlipidemia. 5. Chronic obstructive pulmonary disease. 6. History of DVT. She did not complete anticoagulation due to side effects. 7. Recent hospitalization for hyponatremia. PAST SURGICAL HISTORY: 1. Tubal ligation. 2. Cardiac catheterization. 3. . 4. Tonsillectomy. 5. Left oophorectomy. 6. Depression. ALLERGIES: Patient is allergic to BACTRIM. CURRENT HOME MEDICATIONS: Isosorbide mononitrate 30 mg daily and amlodipine 10 mg daily. SOCIAL HISTORY: Patient currently lives at home. Drinks alcohol socially. No tobacco or drug use. She is FULL CODE. FAMILY HISTORY: Negative for premature coronary artery disease. REVIEW OF SYSTEMS: The following complete review of systems was negative, unless otherwise mentioned in the HPI or below: Constitutional: Weight loss or gain, ability to conduct usual activities. Sk in: Rash, itching. Eyes: Double vision, pain. ENT/Mouth: Nose bleeding, neck stiffness, pain, te nderness. Cardiovascular: Palpitations, dyspnea on exertion, orthopnea. Respiratory: Shortness of breath, wheezing, cough, hemoptysis, fever, or night sweats. Gastrointestinal: Poor appetite, abdo augustin pain, heartburn, nausea, vomiting, constipation, or diarrhea. Genitourinary: Urgency, frequen cy, dysuria, nocturia. Musculoskeletal: Pain, swelling. Neurologic/Psychiatric: Anxiety, depressi on. Allergy/Immunologic: Skin rash, bleeding tendency. PHYSICAL EXAMINATION: VITAL SIGNS: As discussed above. GENERAL: This is a 52-year-old female in no apparent distress. Denies any chest pain at this time. HEENT: Head: Atraumatic, normocephalic. Sclerae are anicteric. Moist mucous membrane, no oral les ion. NECK: Supple, no JVD, no carotid bruit. LUNGS: Clear to auscultation bilaterally. No wheezing, rales, or rhonchi. HEART: S1 and S2 present. Regular rate and rhythm. No murmur, rubs, or gallops appreciated. ABDOMEN: Soft, nontender. Bowel sounds present. EXTREMITIES: No edema or calf tenderness. NEUROLOGIC: Grossly nonfocal. Moves all 4 extremities. PSYCHIATRY: Alert, awake, oriented x3. SKIN: Warm and dry. LYMPH NODES: No palpable lymph nodes in the neck. PERIPHERAL VASCULAR: Radial pulses palpable bilaterally. MUSCULOSKELETAL: No joint swelling or tenderness. LABORATORY FINDINGS: WBC 11 with 82.8% neutrophils, platelet count 298 with hemoglobin 13.7. Sodium 133, potassium 3.2, bicarbonate 23, chloride 102. Creatinine 0.72, total bilirubin 1.9 with AST 47 and ALT 66. Lipase was normal. Troponin negative. Urine drug screen positive for opiates. Urinaly sis was negative for wbc, bacteria. CT angiogram of the chest, by my review, was negative for pulmon roge embolism. It showed nonobstructing left renal calculus. Chest x-ray, by my review, was negative . EKG, by my review, as discussed above. Abdominal ultrasound showed gallbladder sludge without any findings consistent with cholecystitis. Common duct is normal in caliber. IMPRESSION: 1. Chest discomfort with sinus tachycardia. Troponin is negative. She has a history of coronary ar hannah disease, requiring cardiac catheterization in 2016 at [place]. She is currently not on aspir in. Pulmonary embolism has been ruled out. She also had some nausea and vomiting that has improved. 2. Hypertension. 3. Hyperlipidemia. 4. Coronary artery disease, status post myocardial infarction per patient report. 5. Chronic obstructive pulmonary disease. 6. History of cerebrovascular accident, currently not on any antiplatelet agent. 7. Recent hospitalization for hyponatremia. 8. Nonobstructing renal calculi on the left. 9. History of deep vein thrombosis earlier this year. The patient was unable to tolerate Eliquis. 10. Hypokalemia. Magnesium was 1.7. PLAN: The patient will be monitored on the telemetry unit. We will continue gentle IV hydration. Catherine saeed will change amlodipine to Cardizem. She received 1 dose of beta blockers in the emergency room. Catherine saeed will try to obtain records from [place]. We will recheck LFTs in a.m. We will try to obtain Do ppler report from [place]. We will start her on aspirin. Cardiology has been consulted. Echocar diogram will be obtained. Plan of care was discussed with the patient in detail. She stated understanding.
[2017-12-21] MEDS ORDERED: Colchicine 0.3 MG TAB PO SCH (15:30)
--- NOTE | 2017-12-21 18:07 | ULT ---
BILATERAL LOWER EXTREMITY VENOUS DOPPLER WITH SPECTRAL ANALYSIS AND COLOR FLOW EVALUATION: Date: 12-21-17 History: Patient with history of bilateral lower extremity DVT 3 months ago. Comparison: None available. FINDINGS: Grayscale, color flow, doppler evaluation, and spectral analysis of the bilateral lower extremity peng ous structures is performed with 2D imaging. The bilateral lower extremity common femoral, superficia l femoral, popliteal, posterior tibial, and most proximal visualized greater saphenous and profunda f emoral veins are imaged. There is normal lumen compressibility, flow, and augmentation in the visualized deep venous structure s of the bilateral lower extremities. IMPRESSION: No evidence of DVT involving the visualized deep venous structures bilateral lower extremities. POS: BERNARD
[2017-12-21] MEDS: Metoprolol Tartrate 25 MG TAB PO SCH (20:41)
[2017-12-21] MEDS: Colchicine 0.6 MG TAB PO SCH (20:41)
[2017-12-21] MEDS: Famotidine 20 MG TAB PO SCH (20:42)
--- NOTE | 2017-12-21 21:22 | CON ---
DATE OF CONSULTATION: 12/21/2017 HISTORY: Randi Nair is a 52-year-old white female admitted with chest discomfort. In 10/2015, she presented to the [facility] located in [place] and was told that her cardiac enzymes were abnormal. She underwent stress testing in [place] and apparently this was normal. She continued to have chest discomfort with multiple admissions and underwent cardiac catheterization in 10/2015. This revealed normal coronary arteries. She states that she was told that she had a heart attack. This was based apparently on the mildly abnormal cardiac enzymes in the emergency room. Three months ago, she was told that she had bilateral thigh, deep venous thrombosis and was placed on Eliquis. She took this for 2 weeks and stop taking it due to nausea. She stopped taking her baby aspirin per day when she started the Eliquis. She has not been on any aspirin since that time. She now presents complaining of 2-3 days of sharp stabbing chest discomfort, located in the midsternal area that then radiates around under her left breast. The pain is definitely pleuritic in nature. The pain was much worse with lying supine in bed or on her stomach in a prone fashion. The pain was much better if she would sit up. She went to see her primary doctor and her EKG revealed sinus tachycardia and she was referred to the emergency room for further evaluation. PAST MEDICAL HISTORY: History of cerebrovascular accident with some left arm, left facial numbness, hypertension, hyperlipidemia, COPD, history of DVT 3 months ago with only taking anticoagulation for 2 weeks and hospitalized 2 weeks ago for severe hyponatremia, sodium of 108 due to hydrochlorothiazide and Paxil. OPERATIONS: Tubal ligation, , tonsillectomy, left oophorectomy. MEDICATIONS: Amlodipine 10 mg daily, isosorbide mononitrate 30 daily. ALLERGIES: BACTRIM. SOCIAL HISTORY: She does not smoke. She occasionally drinks. FAMILY HISTORY: Negative for coronary artery disease. REVIEW OF SYSTEMS: Twelve-point review of systems otherwise unremarkable. PHYSICAL EXAMINATION: VITAL SIGNS: 141/85, pulse of 89. HEENT: PERRL. NECK: Supple. CHEST: Clear. CARDIAC: S1, S2 normal without any S3, S4, murmurs or rubs. ABDOMEN: Obese. Normal bowel sounds, no tenderness, organomegaly. EXTREMITIES: Revealed no clubbing, cyanosis or edema. NEUROLOGIC: Grossly intact. SKIN: Warm and dry. LABORATORY DATA: EKG revealed sinus tachycardia with rate of 125 per minute, low voltage with no acute changes. Cardiac enzymes are negative x3. Hemoglobin 13.4, hematocrit 38.8, white count 6100, platelets 228,000. Sodium 140, potassium 4.2, chloride 110, carbon dioxide 19, BUN 5, creatinine 0.68. Echocardiogram revealed ejection fraction of 55%-60% with evidence for diastolic dysfunction, mild mitral regurgitation, mild tricuspid regurgitation. There was no pericardial effusion. IMPRESSION: 1. History most consistent with acute pericarditis with sharp stabbing pain that is pleuritic in nature, worse when supine or prone and better with sitting up. 2. Normal coronary arteries, on catheterization in 10/2015 in [place]. 3. Hypertension. 4. Hyperlipidemia. 5. History of transient ischemic attack versus cerebrovascular accident. 6. History of hyponatremia when on hydrochlorothiazide and Paxil. 7. Chronic obstructive pulmonary disease. 8. History of deep venous thrombosis 3 months ago bilaterally. She will include 2 weeks of anticoagulation. 9. Hypokalemia. RECOMMENDATIONS: The patient will be started on colchicine 0.6 mg b.i.d. Lower extremity ultrasound will be obtained to recheck for DVT since she did not complete a course of anticoagulation. MTDD
[2017-12-22 05:22] LABS: ALT (SGPT) 37 U/L (8-55); AST (SGOT) 25 U/L (5-34); Albumin 3.3 g/dL (3.5-5.0); Alkaline Phosphatase 96 U/L (40-150); Anion Gap 11 mmol/L (10-20); BUN (Urea Nitrogen) Less than 4 mg/dL (9.8-20.1); Bilirubin, Total 1.5 mg/dL (0.2-1.2); Calc. Creatinine Clearance 126 mL/min (70-130); Calcium 8.8 mg/dL (7.8-10.44); Carbon Dioxide 21 mmol/L (22-29); Chloride 110 mmol/L (98-107); Cholesterol 151 mg/dl (< 200 Desired); Estimated GFR-MDRD Greater than 90; Globulin 2.4 g/dL (2.4-3.5); Glucose 108 mg/dL (70-105); HDL Cholesterol 75 mg/dL (>60 Neg Risk); LDL Cholesterol, Calculated 61 mg/dL; Potassium 3.8 mmol/L (3.5-5.1); Protein, Total 5.7 g/dL (6.0-8.3); Sodium 138 mmol/L (136-145); Triglycerides 77 mg/dL (Less than 150)
[2017-12-22 08:26] VITALS: BP 130/75; TEMP 98.2
[2017-12-22] MEDS: Famotidine 20 MG TAB PO SCH (08:49)
[2017-12-22] MEDS ORDERED: Cyclobenzaprine 10 MG TAB PO PRN (08:49)
[2017-12-22] MEDS: Colchicine 0.6 MG TAB PO SCH (08:49)
[2017-12-22] MEDS: Metoprolol Tartrate 25 MG TAB PO SCH (08:49)
[2017-12-22] MEDS: Sodium Chloride 0.9% 1,000 ML IV SCH (08:50)
[2017-12-22] MEDS: Enoxaparin Sodium 40 MG/0.4 ML SYRINGE SC SCH (08:50)
[2017-12-22] MEDS ORDERED: Aspirin 81 mg Enteric Coated Tablet PO SCH (09:00)
[2017-12-22] MEDS ORDERED: Gabapentin 100 MG CAP PO SCH (09:00)
[2017-12-22] MEDS ORDERED: Aspirin 325 MG TAB PO SCH (09:00)
[2017-12-22] MEDS ORDERED: Cyclobenzaprine 10 MG TAB PO SCH (09:00)
[2017-12-22] MEDS: Gabapentin 100 MG CAP PO SCH ×2 (10:05→15:44)
--- NOTE | 2017-12-22 21:00 | DIS ---
DATE OF DISCHARGE: 12/22/2017 DISCHARGE DISPOSITION: Home. FOLLOWUP: Follow up with primary care physician, Dr. Brandie Ramos, in 1 week. Follow up with Cardi ology, Dr. Bustos, in 3-4 weeks. Follow up with Neurology, Dr. Maxwell, as needed. ALLERGIES: The patient is allergic to BACTRIM. DISCHARGE MEDICATIONS: 1. Colchicine 0.6 mg b.i.d. 2. Lopressor 12.5 mg b.i.d. 3. All other home medications were left unchanged. BRIEF HOSPITAL COURSE: The patient is a 52-year-old female who presented to the emergency room with chest discomfort. Please refer to the history and physical for further details. The patient was admitted to the hospital with a diagnosis of chest discomfort, rule out acute coronar y syndrome. Serial troponins remain negative. She was seen by Cardiology, Dr. Jhonny Bustos. Ech ocardiogram was performed that showed left ventricular ejection fraction of 55%-60% with diastolic dy sfunction. Chest pain is probably secondary to suspected acute pericarditis. She responded to colch icine. She has been cleared by Cardiology for discharge. On admission, the patient stated that she has a history of UT in the past. However, we obtained salvador rds from [facility]. A cardiac catheterization in 2016 showed normal coronaries. Also, note that the patient has a history of DVT 3 months ago and did not complete anticoagulation. For this reason, we did a venogram of her lower extremity that was negative for DVT. CT angiogram of the chest was negative for PE as well. She was advised to follow up with her primary care physician . FINAL DIAGNOSES: 1. Chest discomfort consistent with acute pericarditis. 2. Hypertension. 3. Hyperlipidemia. 4. Chronic obstructive pulmonary disease. 5. History of cerebrovascular accident. The patient was advised to take 81 mg aspirin. 6. Nonobstructing renal calculi. 7. Hypokalemia. Plan of care was discussed with the patient in detail. She stated understanding.
--- NOTE | 2017-12-25 12:16 | EKG ---
Test Reason : Blood Pressure : / mmHG Vent. Rate : 125 BPM Atrial Rate : 125 BPM P-R Int : 138 ms QRS Dur : 060 ms QT Int : 324 ms P-R-T Axes : 055 033 025 degrees QTc Int : 467 ms Sinus tachycardia Otherwise normal EKG Confirmed by NITESH NAVARRO ([id number]), news video editor KAILA PRETTY ([id number]) on 12/25/2017 12:15:51 PM Referred By: Confirmed By:NITESH NAVARRO
== END 2017-12-22 17:03 | disposition home or self-care (01) ==
LOC: ERS 13:46 → 2SW 22:55
PROVIDERS: ADMIT Internal Medicine; ATTEND Internal Medicine
DX: R07.89 Other chest pain (principal); I10 Essential (primary) hypertension; E78.5 Hyperlipidemia, unspecified; I25.10 Atherosclerotic heart disease of native coronary artery without angina pectoris; J44.9 Chronic obstructive pulmonary disease, unspecified; N20.0 Calculus of kidney; E87.6 Hypokalemia; I25.2 Old myocardial infarction; Z86.73 Personal history of transient ischemic attack (TIA), and cerebral infarction without residual deficits; Z88.1 Allergy status to other antibiotic agents
CPT/HCPCS: 36415; 71045; 71275; 76705; 80048; 80053; 80061; 80306; 81003; 82553; 83690; 83735; 84443; 84484; 85025; 87086; 90471; 90686; 90732; 93005; 93306; 93970; 94760; 96361; 96372; 96374; 96375; 96376; G0008; G0009; G0378; J1650; J2270; J2405